=== PATIENT | male | born 1935 | race Caucasian/White ===

== ENCOUNTER 2016-07-30 17:44 | Emergency (ER) | payer MEDICARE, OTHER ==
[2016-07-30 18:01] LABS: Hematocrit 39.2 % (42.0-52.0); Hemoglobin 12.2 gm/dL (13.5-18.0); Mean Cell Volume 95.6 fl (78-100); Mean Corpuscular Hemoglobin 29.8 pg (27-31); Mean Corpuscular Hgb Conc 31.1 g/dl (32-36); Mean Platelet Volume 9.5 fl (6.0-9.5); Neutrophil # 7.1 K/mm3 (1.3-6.0); Neutrophil % 69.2 % (42-75.0); Platelet Count 440 K/mm3 (150-450); White Blood Count 10.3 K/mm3 (4.0-10.5)
[2016-07-30] MEDS ORDERED: HYDROCORTISONE SOD SUCCINATE 50 MG/ML VIAL IV ONE (18:03)
[2016-07-30] MEDS ORDERED: ALBUTEROL SULFATE/IPRATROPIUM 3 ML NEBU IH ONE ×2 (18:03→18:13)
[2016-07-30] MEDS ORDERED: HYDROCORTISONE SOD SUCCINATE 50 MG/ML VIAL ONE (18:14)
[2016-07-30 18:20] LABS: Troponin I 0.05 ng/ml (0.00-0.10)
[2016-07-30 18:22] LABS: Albumin * 3.1 gm/dl (3.4-5.0); Anion Gap 13.8 mmol/L (6.8-13.8); BUN/Creatinine Ratio 10.4 (9.0-21.6); Bilirubin, Total 0.6 mg/dL (0.0-1.1); Ca. Corrected For Albumin 9.6 mg/dL (8.4-10.2); Calcium * 9.2 mg/dL (7.9-10.9); Potassium 3.8 mmol/L (3.4-4.6); Total Protein 7.4 gm/dL (6.2-8.2)
--- NOTE | 2016-07-30 18:53 | ERNOTE ---
Dyspnea - General Presenting Symptoms: shortness of breath Time Seen by Provider: 07/30/16 17:55 Source: patient Exam Limitations: no limitations - Immun/Allergies/Home Medications Immunizations: IMMUNIZATION HX Immunizations Up to Date Yes History of Influenza Vaccine Yes Hx Pneumococcal Vaccination No Allergies/Adverse Reactions: Allergies No Known Allergies Allergy (Verified 07/30/16 17:51) Home Medications: HOME MEDICATIONS Polyethylene Glycol 3350 [Miralax] 17 gm PO DAILY 05/30/15 [Last Taken Unknown] Simvastatin [Zocor] 20 mg PO HS 05/30/15 [Last Taken Unknown] Cholecalciferol (Vitamin D3) [Vitamin D3] 2,000 unit PO DAILY #100 tab 06/15/15 [Last Taken Unknown] Albuterol Sulfate/Ipratropium [Duoneb 2.5-0.5MG/3ML Soln] 3 ml IH TID 07/30/16 [ Last Taken Unknown] Albuterol Sulfate/Ipratropium [Duoneb 2.5-0.5MG/3ML Soln] 3 ml IH TID 07/30/16 [ Last Taken Unknown] Doxycycline Monohydrate 100 mg PO BID #20 tablet 07/30/16 [Last Taken Unknown] Fluconazole [Diflucan] 100 mg PO DAILY 07/30/16 [Last Taken Unknown] Sertraline HCl [Zoloft] 50 mg PO DAILY 07/30/16 [Last Taken Unknown] predniSONE [Deltasone] 20 mg PO BID #10 tablet 07/30/16 [Last Taken Unknown] - History of Present Illness Narrative: Patient presents with progressively worsening shortness of breath. He states that over the past 2 weeks his legs have been starting to swell and he is having some difficulty laying flat as well. He states that when he lays flat and more short of breath. Describes short of breath as moderate in intensity. 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 Initiating event: Reports: none Frequency of episodes: Reports: occassional episodes Modifying Factors - (Improves): Reports: albuterol Modifying Factors (Worsens): Reports: activity Associated Symptoms-Dyspnea: Reports: denies symptoms Review of Systems - Review of Systems Constitutional: Present: See HPI, fatigue EYE: Present: no symptoms reported ENT: Present: no symptoms reported Respiratory: Present: shortness of breath, cough, orthopnea Cardiology: Present: palpitations, edema Gastrointestinal/Abdominal: Present: no symptoms reported Genitourinary: Present: no symptoms reported Musculoskeletal: Present: no symptoms reported Skin: Present: no symptoms reported Neurological: Present: no symptoms reported Endocrine: Present: no symptoms reported Hematologic/Lymphatic: Present: no symptoms reported Psych: Present: no symptoms reported - Patient's Past Medical History Patient History - Medical: Anxiety, Depression Patient History - Cardiac/Respiratory: COPD, Hyperlipidemia, Pneumonia, Other Patient History - Cancer: No Hx of Cancer Patient History - Surgical Procedures: Colonoscopy, T & A Patient History - Other: None - Family History Mother Family History - Medical: Father Family History - Medical: Family History - Cardiac/Respiratory: CVA/Stroke, Hypertension - Social History Living Situations: alone - at home, never . Abuse History: No History of abuse Psych History: No pertinent hx Smoking Status: Former smoker Have you smoked in the past 12 months: No Alcohol Use: other Drug Use: none - Immunizations Immunizations Up to Date: Yes Hx Pneumococcal Vaccination: No History of Influenza Vaccine: Yes Physical Exam - Physical Exam General Appearance: Present: wd/wn, alert, moderate distress Eye Exam: Normal inspection: bilateral, PERRL: bilateral Ears, Nose, Throat: Present: normal ENT inspection, H, normal pharynx Neck: Present: normal inspection, nontender Respiratory: Present: no accessory muscle use, chest nontender, crackles, wheezing Cardiovascular/Chest: Present: no murmur, normal peripheral pulses, tachycardia Gastrointestinal/Abdominal: Present: normal bowel sounds, nontender, nondistended, soft, no organomegaly Rectal Exam: Present: deferred Back Exam: Present: normal inspection, normal range of motion Extremity Exam: Present: normal inspection, non-tender, normal range of motion, pedal edema Neurological Exam: Present: alert, oriented, normal mood/affect Skin Exam: Present: normal color, warm/dry Lymphatic Exam: Present: no adenopathy ED Progress - Results and Orders Patient's Lab Results:: I have reviewed the patient's lab results. - Vital Signs Patient's Vital Signs:: I have reviewed the patient's vital signs. Vital Signs: Vital Signs 07/30/16 07/30/16 07/30/16 17:49 18:02 18:26 Temperature 37.3 C Pulse Rate 121 H 120 H 113 H Respiratory 24 H Rate Blood Pressure 165/79 O2 Sat by Pulse 97 95 Oximetry 07/30/16 18:31 Temperature Pulse Rate 112 H Respiratory 24 H Rate Blood Pressure 142/89 O2 Sat by Pulse 95 Oximetry - EKG EKG read: Interp. by me - X-Ray X-Ray #1 X-Ray: chest Interpretation: Reviewed by me - Progress/Reassessment Chief Complaint: Dyspnea Plan - Plan Plan: While the patient does have an elevated BNP, and he does have some evolving edema present in his lower extremities, his lungs appear to reveal more a COPD pattern than congestive heart failure. Of note however is the slight heart enlargement that has developed over the past year. Patient will be given a one- time dose of Lasix 80 mg, started on 5 days of prednisone and he will be started on doxycycline. He has been instructed to do his breathing treatments 4 times a day and he is to call Dr. Berger. In follow-up I suspect that the elevated BNP could also be from his evolving renal insufficiency. We'll leave further investigation of this up to Dr. Villa. I discussed admission with the patient and he stated that he could just as soon go home and feels well left to do that after the breathing treatment here. I stressed with him the need to call Dr. Villa in the morning to make sure that any further testing needs to be undertaken can be done as soon as possible. Departure Clinical Impression: COPD (chronic obstructive pulmonary disease) with acute bronchitis - Departure Disposition: Home self-care Condition: Good Instructions: Chronic Obstructive Pulmonary Disease, [id number] Referrals: Cheri Villa MD [Primary Care Provider] - Prescriptions: Doxycycline Monohydrate 100 mg PO BID #20 tablet predniSONE [Deltasone] 20 mg PO BID #10 tablet
[2016-07-30] MEDS ORDERED: FUROSEMIDE 10 MG/ML VIAL IV ONE (19:24)
[2016-07-30] MEDS ORDERED: FUROSEMIDE 10 MG/ML VIAL ONE (19:25)
[2016-07-30 19:50] VITALS: BP 145/101
== END 2016-07-30 19:46 | disposition home or self-care (01) ==
LOC: ER 17:44
DX: J44.9 Chronic obstructive pulmonary disease, unspecified (principal); F41.8 Other specified anxiety disorders

== ENCOUNTER 2016-08-06 07:59 | Emergency (ER) | payer MEDICARE, OTHER ==
[2016-08-06 08:43] LABS: Hematocrit 40.8 % (42.0-52.0); Hemoglobin 12.6 gm/dL (13.5-18.0); Mean Cell Volume 95.8 fl (78-100); Mean Corpuscular Hemoglobin 29.6 pg (27-31); Mean Corpuscular Hgb Conc 30.9 g/dl (32-36); Mean Platelet Volume 10.4 fl (6.0-9.5); Neutrophil # 8.7 K/mm3 (1.3-6.0); Neutrophil % 79.4 % (42-75.0); Platelet Count 328 K/mm3 (150-450); Red Blood Count 4.26 M/mm3 (4.7-6.0); Red Cell Distribution Width 14.6 % (11.5-14.0); White Blood Count 10.9 K/mm3 (4.0-10.5)
[2016-08-06 09:02] LABS: Albumin * 2.9 gm/dl (3.4-5.0); Anion Gap 9.3 mmol/L (6.8-13.8); Bilirubin, Total 0.8 mg/dL (0.0-1.1); Ca. Corrected For Albumin 9.3 mg/dL (8.4-10.2); Calcium * 8.7 mg/dL (7.9-10.9); Carbon Dioxide 32.3 mmol/L (24-32.6); Potassium 3.6 mmol/L (3.4-4.6); Total Protein 6.3 gm/dL (6.2-8.2)
[2016-08-06 09:11] VITALS: BP 127/80
--- NOTE | 2016-08-06 09:16 | ERNOTE ---
Time Seen by Provider: 08/06/16 08:20 Stated Complaint: ILL Immunizations: IMMUNIZATION HX Immunizations Up to Date Yes History of Influenza Vaccine Yes Hx Pneumococcal Vaccination No Allergies/Adverse Reactions: Allergies No Known Allergies Allergy (Verified 08/06/16 08:11) Home Medications: HOME MEDICATIONS Polyethylene Glycol 3350 [Miralax] 17 gm PO DAILY 05/30/15 [Last Taken Unknown] Simvastatin [Zocor] 20 mg PO HS 05/30/15 [Last Taken Unknown] Cholecalciferol (Vitamin D3) [Vitamin D3] 2,000 unit PO DAILY #100 tab 06/15/15 [Last Taken Unknown] Albuterol Sulfate/Ipratropium [Duoneb 2.5-0.5MG/3ML Soln] 3 ml IH TID 07/30/16 [ Last Taken Unknown] Albuterol Sulfate/Ipratropium [Duoneb 2.5-0.5MG/3ML Soln] 3 ml IH TID 07/30/16 [ Last Taken Unknown] Doxycycline Monohydrate 100 mg PO BID #20 tablet 07/30/16 [Last Taken Unknown] Fluconazole [Diflucan] 100 mg PO DAILY 07/30/16 [Last Taken Unknown] Sertraline HCl [Zoloft] 50 mg PO DAILY 07/30/16 [Last Taken Unknown] predniSONE [Deltasone] 20 mg PO BID #10 tablet 07/30/16 [Last Taken Unknown] - History of Present Ilness Narrative: This patient comes in today because he had a fall prior to presentation to the emergency room. He states that during the fall he did not hit his head however he broke his partial bridge and dentures. he any pain or discomfort to the facial area or the jaw or the oral cavity. Does have a history of congestive heart failure and was recently discharged from the hospital has no complaints of shortness of breath or cough any more than usual Review of Systems - Review of Systems Constitutional: Present: no symptoms reported, decreased activity level ENT: Present: no symptoms reported, other - patient states that he broke his lower dentures Respiratory: Present: no symptoms reported Cardiology: Present: no symptoms reported Gastrointestinal/Abdominal: Present: no symptoms reported Musculoskeletal: Present: no symptoms reported - Patient's Past Medical History Patient History - Medical: Anxiety, Depression Patient History - Cardiac/Respiratory: COPD, Hyperlipidemia, Pneumonia, Other Patient History - Cancer: No Hx of Cancer Patient History - Surgical Procedures: Colonoscopy, T & A Patient History - Other: None - Family History Mother Family History - Medical: Father Family History - Medical: Family History - Cardiac/Respiratory: CVA/Stroke, Hypertension - Social History Living Situations: alone - at home, never . Abuse History: No History of abuse Psych History: No pertinent hx Smoking Status: Former smoker Have you smoked in the past 12 months: No Alcohol Use: other Drug Use: none - Immunizations Immunizations Up to Date: Yes Hx Pneumococcal Vaccination: No History of Influenza Vaccine: Yes Physical Exam - Physical Exam General Appearance: Present: wd/wn, alert, no apparent distress Ears, Nose, Throat: Present: normal ENT inspection, other - patient is missing his lower dentures he has no evidence of trauma to the gums and teeth or tongue upon inspection and examination of the oral cavity. Neck: Present: normal inspection, nontender, supple Respiratory: Present: no respiratory distress, normal breath sounds, no accessory muscle use, chest nontender, lungs clear Cardiovascular/Chest: Present: regular rate, rhythm, no murmur, normal peripheral pulses Back Exam: Present: normal inspection Extremity Exam: Present: normal inspection ED Progress - Results and Orders Patient's Lab Results:: I have reviewed the patient's lab results. - Vital Signs Patient's Vital Signs:: I have reviewed the patient's vital signs. Vital Signs: Vital Signs 08/06/16 08/06/16 08:07 08:51 Temperature 36.6 C Pulse Rate 110 H 110 H Respiratory 18 24 H Rate Blood Pressure 131/76 133/76 O2 Sat by Pulse 96 97 Oximetry - EKG EKG read: Interp. by il - X-Ray X-Ray #1 X-Ray: chest - Progress/Reassessment Chief Complaint: Cough Plan - Plan Plan: This patient has a history of pulmonary issues, however all of those problems are stable. He did have a fall during which he broke his dentures however his oral cavity is free of any trauma he does have a small abrasion asked beneath the left side of his lower lip which is healed up there is no active bleeding going on no swelling deformity or any other trauma to his oral cavity. Although he did fracture his dentures. Additionally has an appointment with his primary care doctor at 1:15 today. Patient is stable to be discharged to follow-up with his primary care doctor today. For the treatment is indicated at this time. His BNP is elevated as it was last week. He has no significant shortness of breath. Departure - Departure Clinical Impression: Fall Qualifiers: Encounter type: initial encounter Qualified Code(s): W19.XXXA - Unspecified fall, initial encounter Disposition: Home self-care Condition: Good Instructions: Fall Prevention in the Home, [id number] Referrals: Cheri Villa MD [Primary Care Provider] -
== END 2016-08-06 09:24 | disposition home or self-care (01) ==
LOC: ER 07:59
DX: Z03.89 Encounter for observation for other suspected diseases and conditions ruled out (principal); W19.XXXA Unspecified fall, initial encounter; J44.9 Chronic obstructive pulmonary disease, unspecified; E78.5 Hyperlipidemia, unspecified; F41.8 Other specified anxiety disorders

== ENCOUNTER 2016-08-06 21:24 | Inpatient (IN) | payer MEDICARE, OTHER ==
--- NOTE | 2016-08-06 22:43 | ERNOTE ---
Medical Problem HPI - General Chief Complaint: General Assessment Time Seen by Provider: 08/06/16 22:32 Source: patient, other - neighbor - Immun/Allergies/Home Medications Immunizations: IMMUNIZATION HX Immunizations Up to Date Yes History of Influenza Vaccine Yes Hx Pneumococcal Vaccination No Allergies/Adverse Reactions: Allergies No Known Allergies Allergy (Verified 08/06/16 21:42) Home Medications: HOME MEDICATIONS Polyethylene Glycol 3350 [Miralax] 17 gm PO DAILY 05/30/15 [Last Taken Unknown] Simvastatin [Zocor] 20 mg PO HS 05/30/15 [Last Taken Unknown] Cholecalciferol (Vitamin D3) [Vitamin D3] 2,000 unit PO DAILY #100 tab 06/15/15 [Last Taken Unknown] Albuterol Sulfate/Ipratropium [Duoneb 2.5-0.5MG/3ML Soln] 3 ml IH TID 07/30/16 [ Last Taken Unknown] Doxycycline Monohydrate 100 mg PO BID #20 tablet 07/30/16 [Last Taken Unknown] Fluconazole [Diflucan] 100 mg PO DAILY 07/30/16 [Last Taken Unknown] Sertraline HCl [Zoloft] 50 mg PO DAILY 07/30/16 [Last Taken Unknown] predniSONE [Deltasone] 20 mg PO BID #10 tablet 07/30/16 [Last Taken Unknown] Albuterol Sulfate [Albuterol Sulfate 2.5 MG/3 ML] 2.5 mg IH TID PRN 08/07/16 [ Last Taken Unknown] Metoprolol Succinate 25 mg PO HS 08/07/16 [Last Taken Unknown] - History of Present History Narrative: Pt states he has not felt well for about a week. He has been seen in this ED twice in that time without significant findings. His friend suggests that he wants to be admitted to a skilled nursing Timing: constant Severity: moderate Review of Systems - Review of Systems Constitutional: Absent: recent illness, fever, chills EYE: Present: no symptoms reported ENT: Present: no symptoms reported Respiratory: Absent: shortness of breath, cough Cardiology: Absent: chest pain, palpitations Gastrointestinal/Abdominal: Present: constipation - cant remember when his last BM was., abdominal pain - mild diffuse, eating less, drinking less Genitourinary: Absent: frequency, pain Musculoskeletal: Absent: back pain, joint pain, joint swelling Skin: Absent: rash, change in color Neurological: Present: no symptoms reported Endocrine: Absent: excessive sweating, flushing Hematologic/Lymphatic: Present: no symptoms reported Psych: Present: no symptoms reported - Patient's Past Medical History Patient History - Medical: Anxiety, Depression Patient History - Cardiac/Respiratory: COPD, Hyperlipidemia, Pneumonia, Other Patient History - Cancer: No Hx of Cancer Patient History - Surgical Procedures: Colonoscopy, T & A Patient History - Other: None - Family History Mother Family History - Medical: Father Family History - Medical: Family History - Cardiac/Respiratory: CVA/Stroke, Hypertension - Social History Living Situations: alone - at home, never . Abuse History: No History of abuse Psych History: No pertinent hx Alcohol Use: other Drug Use: none - Immunizations Immunizations Up to Date: Yes Hx Pneumococcal Vaccination: No History of Influenza Vaccine: Yes Physical Exam - Physical Exam General Appearance: Present: wd/wn, alert, no apparent distress Eye Exam: Normal inspection: bilateral, PERRL: bilateral, EOMI: bilateral Ears, Nose, Throat: Present: normal ENT inspection, normal pharynx Neck: Present: normal inspection, nontender Respiratory: Present: no respiratory distress, normal breath sounds, lungs clear Cardiovascular/Chest: Present: regular rate, rhythm, no murmur, normal peripheral pulses Gastrointestinal/Abdominal: Present: normal bowel sounds, nontender, soft Back Exam: Present: normal inspection, normal range of motion Extremity Exam: Present: normal inspection, normal range of motion, no edema Neurological Exam: Present: alert, oriented, normal mood/affect Skin Exam: Present: normal color, warm/dry Lymphatic Exam: Present: no adenopathy ED Progress - Results and Orders Patient's Lab Results:: I have reviewed the patient's lab results. Results and Orders: Laboratory Tests 08/06/16 08/06/16 08/06/16 22:58 23:33 23:33 WBC 12.6 H Hgb 11.9 L Hct 37.8 L Plt Count 312 Neutrophils % 76.4 H Sodium 144 H Potassium 3.6 Chloride 107 H Carbon Dioxide 32.0 Anion Gap 8.6 BUN 32 H Creatinine 1.44 H Est GFR (Non-Af Amer) 50 L BUN/Creatinine Ratio 22.2 H Random Glucose 117 H Calcium 8.8 Total Bilirubin 0.5 AST 36 ALT 83 H Alkaline Phosphatase 96 Total Protein 6.1 L Albumin 2.5 L Urine Color Yellow Urine Appearance Clear Urine pH 8.0 H Ur Specific [place] 1.010 Urine Protein Negative Urine Glucose (UA) Negative Urine Ketones Negative Urine Blood Negative Urine Nitrate Negative Urine Bilirubin Negative Urine Urobilinogen Normal Ur Leukocyte Esterase Negative Urine RBC None seen Urine WBC None seen Ur Epithelial Cells None seen Amorphous Sediment Few - 1+ Urine Bacteria None seen Urine Culture Comments No culture indicated - Vital Signs Patient's Vital Signs:: I have reviewed the patient's vital signs. Vital Signs: Vital Signs 08/06/16 08/06/16 21:37 22:14 Temperature 36.6 C Pulse Rate 121 H 124 H Respiratory 16 22 H Rate Blood Pressure 139/79 143/99 O2 Sat by Pulse 98 96 Oximetry - EKG EKG: atrial fibrillation EKG read: Interp. by me EKG Comments: with RVR at 124 - X-Ray X-Ray #1 X-Ray: abdomen Interpretation: Interp. by me X-ray Comments: moderate stool RLQ and LUQ. no evidence of obstruction X-Ray #2 X-Ray: chest Interpretation: Interp. by me X-ray Comments: Unremarkable - CT/Ultrasound CT/Ultrasound Narrative: discussed elevated WBC with patient and his recent abdominal discomfort. suggested CT with contrast to R/O abdominal pathology. - Progress/Reassessment Chief Complaint: General Assessment Progress:: Improved Progress Note-Subjective: 08/07/16 03:27 spoke with Amparo CARREON about observation admission for telemetry she agrees with obs. admit. Cole catheter was placed and 1000mL was immediately returned. Cole was clamped to reduce bladder spasm and then drained later Departure - Departure Clinical Impression: Paroxysmal a-fib, Bladder outlet obstruction Constipation Qualifiers: Constipation type: slow transit constipation Qualified Code(s): K59.01 - Slow transit constipation Disposition: [facility] Condition: Fair
[2016-08-06 23:06] LABS: Urine Bilirubin Negative (NEGATIVE); Urine Blood Negative /ul (NEGATIVE); Urine Ketone Negative (NEGATIVE); Urine Nitrite Negative (NEGATIVE); Urine Protein Negative (NEGATIVE); Urine Urobilinogen Normal (NORMAL)
[2016-08-06 23:12] LABS: Urine Appearance Clear; Urine Color Yellow
[2016-08-06 23:13] LABS: Urine Amorphous Sediment Few - 1+ (NONE-FEW); Urine Bacteria None Seen; Urine RBC None Seen /hpf (0-5); Urine WBC None Seen /hpf (0-5)
[2016-08-06 23:34] LABS: Hematocrit 37.8 % (42.0-52.0); Hemoglobin 11.9 gm/dL (13.5-18.0); Mean Cell Volume 94.7 fl (78-100); Mean Corpuscular Hemoglobin 29.8 pg (27-31); Mean Corpuscular Hgb Conc 31.5 g/dl (32-36); Mean Platelet Volume 10.4 fl (6.0-9.5); Neutrophil # 9.6 K/mm3 (1.3-6.0); Neutrophil % 76.4 % (42-75.0); Platelet Count 312 K/mm3 (150-450); Red Blood Count 3.99 M/mm3 (4.7-6.0); Red Cell Distribution Width 14.6 % (11.5-14.0); White Blood Count 12.6 K/mm3 (4.0-10.5)
[2016-08-06 23:58] LABS: Albumin * 2.5 gm/dl (3.4-5.0); Anion Gap 8.6 mmol/L (6.8-13.8); BUN/Creatinine Ratio 22.2 (9.0-21.6); Bilirubin, Total 0.5 mg/dL (0.0-1.1); Ca. Corrected For Albumin 9.7 mg/dL (8.4-10.2); Calcium * 8.8 mg/dL (7.9-10.9); Potassium 3.6 mmol/L (3.4-4.6); Total Protein 6.1 gm/dL (6.2-8.2)
[2016-08-07] MEDS ORDERED: DIATRIZOATE MEGLU/DIATRIZO SOD 30 ML BTL ONE (00:32)
[2016-08-07] MEDS ORDERED: DIATRIZOATE MEGLU/DIATRIZO SOD 30 ML BTL PO ONE (00:45)
[2016-08-07] MEDS ORDERED: NORMAL SALINE 1,000 ML IV ONE (01:06)
[2016-08-07] MEDS ORDERED: ONDANSETRON HCL/PF 2 MG/ML VIAL ONE (01:40)
[2016-08-07] MEDS ORDERED: ONDANSETRON HCL/PF 2 MG/ML VIAL IV ONE (01:42)
--- NOTE | 2016-08-07 04:17 | HP ---
Chief Complaint - Chief Complaint Date of Service: 08/07/16 Time of Service: 04:13 Chief Complaint: " poor appetite, nausea, hurting all over". Source of HPI- Pt ; unreliable historian, ER Provider report. History of Present Illness: Mr. Vázquez is a 81-yr-old WM pt of Dr. Cheri Villa with a PMH of: COPD, Constipation, HLD, Pulmonary Fibrosis & Pneumonia. Pt does not appear to be a precise historian in relaying the events surrounding the period of unwellness. He states that he has not been himself anymore, and that he has felt nauseated and his appetite has been poor. He reports that he has felt bloated for the last 2-3 days and has not been able to urinate normally. He presented to the [facility] ED on 07/30/16 for SOB, leg swelling and the CXR obtained showed more COPD vs CHF. He was discharged from the ED on Doxycycline, Prednisone neb treatments. On 08/06/16, he presented to the ED again following a fall at home, but he denied hitting his head or having pain in any joints. His other medical problems were determined to be in a stable state by the ERP and so he was discharged again. He came back on the night of 08/06 stating to the ED physician that he just hasn't fell well, but could not elaborate further about his symptoms. During evaluation at the ED, the KUB obtained did not show any obstruction but there was moderate stool retention. The CT of the Abdomen showed bilateral hydronephrosis and hydroureter but no evidence of obstructing calculi. He was also found to be in A-fib with RVR of 120s-130s. Other labwork showed elevated WBC of 12,600 with a LT shift[place] [address], but he denied feeling of SOB, had no peripheral edema and the CXR did not show signs of pulmonary edema. The pt will be admitted under observation status for remote telemetry monitoring due to A-fib with RVR to ensure that it does not progress to a worse/dangerous arrythmia. - Patient's Past Medical History Patient History - Medical: Anxiety, Depression Patient History - Cardiac/Respiratory: COPD, Hyperlipidemia, Pneumonia, Other Patient History - Cancer: No Hx of Cancer Patient History - Surgical Procedures: Colonoscopy, T & A Patient History - Other: None - Family History Mother Family History - Medical: Family History - Cancer: Breast Father Family History - Medical: Family History - Cardiac/Respiratory: CVA/Stroke, Hypertension - Social History Living Situations: alone - at home, never . Abuse History: No History of abuse Psych History: No pertinent hx Alcohol Use: other Drug Use: none - Immunizations Immunizations Up to Date: Yes Hx Pneumococcal Vaccination: No History of Influenza Vaccine: Yes Review Of Systems (GEN) - Review of Systems Generalized/Overall Review: Present: Weakness, Malaise, Fatigue. Absent: Chills , Fever, Diaphoresis EENTM: Absent: Eye Pain, Blurred Vision, Nose Congestion Respiratory: Absent: Cough, Shortness of Breath, Orthopnea Cardiac: Absent: Chest Pain, Edema Abdominal: Present: Constipation. Absent: Nausea, Vomiting, Hematemesis, Abdominal Pain, Diarrhea Genitourinary: Present: Hesitancy, Retention. Absent: Burning, Itching Musculoskeletal: Present: Back Pain Neurological: Absent: Headache, Anxiety, Depressed Skin: Absent: Dryness, Lesions Endocrine: Absent: Intolerance to Cold, Intolerance to Heat, Increased Hunger, Increased Thirst Immunizations: IMMUNIZATION HX Immunizations Up to Date Yes History of Influenza Vaccine Yes Hx Pneumococcal Vaccination No Allergies/Adverse Reactions: Allergies Allergy/AdvReac Type Severity Reaction Status Date / Time No Known Allergies Allergy Verified 08/06/16 21:42 Home Medications: HOME MEDICATIONS Polyethylene Glycol 3350 [Miralax] 17 gm PO DAILY 05/30/15 [Last Taken Unknown] Simvastatin [Zocor] 20 mg PO HS 05/30/15 [Last Taken Unknown] Cholecalciferol (Vitamin D3) [Vitamin D3] 2,000 unit PO DAILY #100 tab 06/15/15 [Last Taken Unknown] Albuterol Sulfate/Ipratropium [Duoneb 2.5-0.5MG/3ML Soln] 3 ml IH TID 07/30/16 [ Last Taken Unknown] Doxycycline Monohydrate 100 mg PO BID #20 tablet 07/30/16 [Last Taken Unknown] Fluconazole [Diflucan] 100 mg PO DAILY 07/30/16 [Last Taken Unknown] Sertraline HCl [Zoloft] 50 mg PO DAILY 07/30/16 [Last Taken Unknown] predniSONE [Deltasone] 20 mg PO BID #10 tablet 07/30/16 [Last Taken Unknown] Albuterol Sulfate [Albuterol Sulfate 2.5 MG/3 ML] 2.5 mg IH TID PRN 08/07/16 [ Last Taken Unknown] Metoprolol Succinate 25 mg PO HS 08/07/16 [Last Taken Unknown] Exam - Exam Vital Signs: Vital Signs - Last Taken Temp 36.4 C L 08/07/16 00:37 Pulse 116 H 08/07/16 04:00 Resp 16 08/07/16 04:00 BP 137/88 08/07/16 04:00 Pulse Ox 93 08/07/16 04:00 Constitutional: Present: Alert, Oriented x3, Cooperative, No distress ENT Exam: Present: normal ENT inspection, hearing grossly normal Eye Exam: bilateral eye: normal inspection, PERRL Neck: Present: full range of motion, supple, normal inspection Back Exam: Present: normal inspection, no CVA tenderness Respiratory: Present: lungs clear, No rales Cardiovascular/Chest: Present: irregularly irregular Abdomen: Present: Normal bowel sounds, soft, nontender /Rectal: Present: Other - Jacques Catheter Extremity: Present: normal range of motion, non-tender, normal inspection Skin Exam: Present: warm/dry, no cyanosis Lymphatic: Present: no adenopathy Neurologic: Present: alert, normal mood/affect, oriented x 3 Appearance: Present: appropriate appearance, appropriate insight Eye contact: Present: cooperative, good eye contact, normal speech Thoughts: Present: normal thought pattern, no apparent hallucination Diagnostic Studies: Laboratory Results WBC 12.6 K/mm3 (4.0-10.5) H 08/06/16 23:33 RBC 3.99 M/mm3 (4.7-6.0) L 08/06/16 23:33 Hgb 11.9 gm/dL (13.5-18.0) L 08/06/16 23:33 Hct 37.8 % (42.0-52.0) L 08/06/16 23:33 MCV 94.7 fl (78-100) 08/06/16 23:33 MCH 29.8 pg (27-31) 08/06/16 23:33 MCHC 31.5 g/dl (32-36) L 08/06/16 23:33 RDW 14.6 % (11.5-14.0) H 08/06/16 23:33 Plt Count 312 K/mm3 (150-450) 08/06/16 23:33 MPV 10.4 fl (6.0-9.5) H 08/06/16 23:33 Immature Gran % (Auto) 0.40 % (0.001-0.429) 08/06/16 23: Immature Gran # (Auto) 0.05 K/mm3 (0.000-0.0310) H 08/06/16 23:33 Neutrophils % 76.4 % (42-75.0) H 08/06/16 23:33 Lymphocytes % 12.7 % (20-51) L 08/06/16 23:33 Monocytes % 8.8 % (0.0-9) 08/06/16 23: Eosinophils % 1.7 % (0.0-3.0) 08/06/16 23: Basophils % 0.0 % (0.0-1.0) 08/06/16 23: Nucleated RBC % 0.0 k/mm3 (0-1) 08/06/16 23:33 Neutrophils # 9.6 K/mm3 (1.3-6.0) H 08/06/16 23:33 Lymphocytes # 1.6 k/mm3 (1.5-3.5) 08/06/16 23:33 Monocytes # 1.1 k/mm3 (0.0-1.0) H 08/06/16 23:33 Eosinophils # 0.2 k/mm3 (0.0-0.7) 08/06/16 23:33 Absolute Basophils 0.0 k/mm3 (0.0-0.1) 08/06/16 23:33 Sodium 144 mmol/L (132-142) H 08/06/16 23:33 Plasma Sodium 144 mmol/L (130-142) H 08/06/16 23:33 Potassium 3.6 mmol/L (3.4-4.6) 08/06/16 23:33 Chloride 107 mmol/L (97-106) H 08/06/16 23:33 Carbon Dioxide 32.0 mmol/L (24-32.6) 08/06/16 23:33 Anion Gap 8.6 mmol/L (6.8-13.8) 08/06/16 23:33 BUN 32 mg/dL (6-23) H 08/06/16 23:33 Creatinine 1.44 mg/dL (0.4-1.4) H 08/06/16 23:33 Est GFR (Non-Af Amer) 50 mL/min (60-130) L 08/06/16 23:33 BUN/Creatinine Ratio 22.2 (9.0-21.6) H 08/06/16 23:33 Random Glucose 117 mg/dL (70-110) H 08/06/16 23:33 Calcium 8.8 mg/dL (7.9-10.9) 08/06/16 23:33 Calcium Adj for Albumin 9.7 mg/dL (8.4-10.2) 08/06/16 23:33 Total Bilirubin 0.5 mg/dL (0.0-1.1) 08/06/16 23:33 AST 36 U/L (0-48) 08/06/16 23:33 ALT 83 U/L (19-67) H 08/06/16 23:33 Alkaline Phosphatase 96 U/L (50-170) 08/06/16 23:33 Total Protein 6.1 gm/dL (6.2-8.2) L 08/06/16 23:33 Albumin 2.5 gm/dl (3.4-5.0) L 08/06/16 23:33 Urine Color Yellow 08/06/16 22:58 Urine Appearance Clear 08/06/16 22:58 Urine pH 8.0 pH (5.0-7.0) H 08/06/16 22:58 Ur Specific [place] 1.010 SP.GR. (1.005-1.030) 08/06/16 22:58 Urine Protein Negative mg/dL (NEGATIVE) 08/06/16 22:58 Urine Glucose (UA) Negative mg/dL (NEGATIVE) 08/06/16 22:58 Urine Ketones Negative mg/dL (NEGATIVE) 08/06/16 22:58 Urine Blood Negative /ul (NEGATIVE) 08/06/16 22:58 Urine Nitrate Negative (NEGATIVE) 08/06/16 22:58 Urine Bilirubin Negative mg/dl (NEGATIVE) 08/06/16 22:58 Urine Urobilinogen Normal EU/dl (NORMAL) 08/06/16 22:58 Ur Leukocyte Esterase Negative /ul (NEGATIVE) 08/06/16 22:58 Urine RBC None seen /hpf (0-5) 08/06/16 22:58 Urine WBC None seen /hpf (0-5) 08/06/16 22:58 Ur Epithelial Cells None seen /hpf (0-5) 08/06/16 22:58 Amorphous Sediment Few - 1+ (NONE-FEW) 08/06/16 22:58 Urine Bacteria None seen (NONE) 08/06/16 22:58 Urine Culture Comments No culture indicated 08/06/16 22:58 Assessment/Plan - Assessment/Plan (1) Atrial fibrillation with RVR Assessment: Pt noted to have A-fib with RVR in 120s on the EKG during presentation and later trended down to the 110s without any pharmacological intervention. He denied the associated symptoms of: SOB, Dizziness,Chest pain and lightheadedness. He may need a TTE to check for valvular disease and to look for thrombus formation. Will check TSH as this is the first episode of A-fib. For pt's with new onset Afib, rate control precedes any attempt to restore sinus rhythm and since he is asymptomatic, a lenient rate control of < [address] him on continuos telemetry monitoring and start him on Metoprolol Succinate 50 mg daily. He may also need anticoagulation as he has an intermediate risk of thromboembolic event according to the CHADS2 score. Problem: Acute (2) Urinary retention Assessment: The Abdominal x-ray showed moderate stool retention. The CT scan of the Abdomen showed bilateral hydronephrosis and hydroureter but no evidence of obstructing calculi. Pt reported having trouble with voiding. He had a jacques catheter inserted at the ED and had urine output of 1000 ml. I suspect the urinary retention was caused by constipation. Will treat the constipation with stimulant and osmotic laxative. Will discontinue jacques catheter and bladder scan for PVR. Problem: Acute (3) ERON (acute kidney injury) Assessment: Mildly elevated BUN/CR 32/1.44 and probably worsened by retention. Has a jacques cath. and will continue to hydrate with IVF. Check BMP in am. Problem: Acute (4) Constipation Assessment: Moderate stool retention noted on Abd. X-Ray- Given Dulcolax supp and Miralax. Monitor results. Problem: Acute Qualifiers: Constipation type: slow transit constipation Qualified Code(s): K59.01 - Slow transit constipation (5) Elevated brain natriuretic peptide (BNP) level Assessment: Even though he has elevated BNP, he lacks the signs of Congestive Heart Failure : he denies SOB or does not appear to be dyspneic, no peripheral edema and no pulmonary congestion/edema on CXR. Laboratory Tests 07/30/16 08/06/16 08/07/16 17:55 08:36 03:50 B-Natriuretic Peptide 69921 H 54265 H 55512 H Problem: Acute (6) COPD (chronic obstructive pulmonary disease) Assessment: Stable- Continue Neb treatments. Problem: Chronic (7) Hyperlipidemia Assessment: Stable- On Zocor. Problem: Chronic (8) Pulmonary fibrosis, unspecified Problem: Chronic
[2016-08-07 04:21] LABS: Troponin I 0.042 ng/ml (0.00-0.10)
[2016-08-07] MEDS ORDERED: BISACODYL 10 MG SUPP.RECT RC ONE (04:58)
[2016-08-07] MEDS ORDERED: NORMAL SALINE 1,000 ML IV PRN (05:15)
[2016-08-07] MEDS: POLYETHYLENE GLYCOL 3350 119 GM BTL PO SCH ×2 (05:27→08:50)
[2016-08-07 06:20] LABS: Hematocrit 38.1 % (42.0-52.0); Hemoglobin 11.7 gm/dL (13.5-18.0); Mean Cell Volume 96.2 fl (78-100); Mean Corpuscular Hemoglobin 29.5 pg (27-31); Mean Corpuscular Hgb Conc 30.7 g/dl (32-36); Mean Platelet Volume 10.3 fl (6.0-9.5); Neutrophil # 8.9 K/mm3 (1.3-6.0); Neutrophil % 77.3 % (42-75.0); Platelet Count 311 K/mm3 (150-450); Red Blood Count 3.96 M/mm3 (4.7-6.0); Red Cell Distribution Width 14.6 % (11.5-14.0); White Blood Count 11.5 K/mm3 (4.0-10.5)
[2016-08-07] MEDS ORDERED: ALBUTEROL SULFATE 2.5 MG/3 ML VIAL.NEB IH PRN (06:42)
[2016-08-07] MEDS ORDERED: METOPROLOL SUCCINATE 50 MG TABLET.SA PO SCH (06:45)
[2016-08-07 06:52] LABS: Anion Gap 9.1 mmol/L (6.8-13.8); BUN/Creatinine Ratio 19.1 (9.0-21.6); Calcium * 8.6 mg/dL (7.9-10.9); Carbon Dioxide 29.9 mmol/L (24-32.6); Estimated Creat Clear 37.1; TSH * 1.473 uIU/mL (0.358-3.74)
[2016-08-07] MEDS: CHOLECALCIFEROL 1,000 UNIT CAPSULE PO SCH (08:54)
[2016-08-07] MEDS: SERTRALINE HCL 50 MG TABLET PO SCH (08:54)
[2016-08-07] MEDS ORDERED: FLUCONAZOLE 100 MG TABLET PO SCH (09:00)
[2016-08-07] MEDS ORDERED: DOXYCYCLINE HYCLATE 100 MG TABLET PO SCH (09:00)
[2016-08-07] MEDS: ALBUTEROL SULFATE/IPRATROPIUM 3 ML NEBU IH SCH ×3 (09:05→18:22)
[2016-08-07] MEDS ORDERED: DEXTROSE 5%-NORMAL SALINE 1,000 ML IV PRN (09:42)
[2016-08-07] MEDS ORDERED: TAMSULOSIN HCL 0.4 MG CAP.SR.24H PO ONE (10:15)
[2016-08-07] MEDS ORDERED: LIDOCAINE HCL 10 APPL CARTRIDGE TP ONE (10:19)
[2016-08-07] MEDS ORDERED: LIDOCAINE HCL 10 APPL CARTRIDGE ONE (10:22)
--- NOTE | 2016-08-07 10:33 | CONS ---
HPI - General Narrative: 81-year-old male with history of COPD, pulmonary fibrosis and possible CHF admitted for what appears to be a CHF exacerbation. Was discovered on imaging to have significant hydroureteronephrosis. Cole catheter was placed with 1 L residual. Creatinine history: 2016 1.0 2016 1.2 07/27 1.8 07/27 1.5 07/27 1.4 07/27 CT urogram: Bilateral significant hydroureteronephrosis with massive bladder distention, large prostate. Definitely outlet obstruction. Past medical history: Includes COPD, pulmonary fibrosis, possible CHF Past surgical history: No prior prostate surgery Family history: Noncontributory Social history: Lives alone Review of systems: General: No fevers, some nausea and fatigue Lungs: Get short of breath fairly easily Heart: No active chest pain GI: Trouble with constipation from time to time : Does have obstructive symptomatology a baseline. Does not care for the catheter. He is not sure if he is ever had a PSA. 14 point review of systems otherwise negative, important positives noted - History of Present Illness Allergies/Adverse Reactions: Allergies No Known Allergies Allergy (Verified 08/06/16 21:42) Home Medications: Home Medications Medication Instructions Recorded Last Taken Polyethylene Glycol 3350 [Miralax] 17 gm PO DAILY 05/30/15 Unknown Simvastatin [Zocor] 20 mg PO HS 05/30/15 Unknown Albuterol Sulfate/Ipratropium 3 ml IH TID 07/30/16 Unknown [Duoneb 2.5-0.5MG/3ML Soln] Fluconazole [Diflucan] 100 mg PO DAILY 07/30/16 Unknown Sertraline HCl [Zoloft] 50 mg PO DAILY 07/30/16 Unknown Albuterol Sulfate [Albuterol 2.5 mg IH TID PRN 08/07/16 Unknown Sulfate 2.5 MG/3 ML] Metoprolol Succinate 25 mg PO HS 08/07/16 Unknown - Patient's Past Medical History Patient History - Medical: Anxiety, Depression Patient History - Cardiac/Respiratory: COPD, Hyperlipidemia, Pneumonia, Other Patient History - Cancer: No Hx of Cancer Patient History - Surgical Procedures: Colonoscopy, T & A Patient History - Other: None - Family History Mother Family History - Medical: Family History - Cancer: Breast Father Family History - Medical: Family History - Cardiac/Respiratory: CVA/Stroke, Hypertension - Social History Living Situations: alone - at home, never . Abuse History: No History of abuse Psych History: No pertinent hx Smoking Status: Former smoker Have you smoked in the past 12 months: No Smoking Stop Date: 02/10/01 Patient requests Smoking Cessation Consult: No Initiate information on Smoking Cessation: No Alcohol Use: other Drug Use: none - Immunizations Immunizations Up to Date: Yes Hx Pneumococcal Vaccination: No History of Influenza Vaccine: Yes Medications - Medications Current Medications: Current Medications Albuterol/Ipratropium (Duoneb 2.5-0.5mg/3ml Soln) 3 ml IH TIDRT JI Stop: 09/06/16 09:01 Last Admin: 08/07/16 09:05 Dose: 3 ml Cholecalciferol (Vitamin D) 2,000 unit PO DAILY JI Stop: 09/06/16 09:01 Last Admin: 08/07/16 08:54 Dose: 2,000 unit Polyethylene Glycol (Miralax) 17 gm PO DAILY JI Stop: 09/06/16 05:16 Last Admin: 08/07/16 08:50 Dose: Not Given Sertraline HCl (Zoloft) 50 mg PO DAILY JI Stop: 09/06/16 09:01 Last Admin: 08/07/16 08:54 Dose: 50 mg Physical Examination - Exam Narrative: General: Nontoxic, looks a bit uncomfortable, impaired performance status, not the best surgical candidate Psych: Alert and oriented HEENT: EOM grossly intact Lungs: Respirations slightly labored at rest otherwise clear Abdomen: Relatively thin, benign Neuro: sensation intact Extremities: Moves all 4 without difficulty Heart: Pulse was a bit tachy Skin: Some bruising Back: No CVA tenderness Genital: Cole catheter in place. Urine is a bit red which is not surprising given decompression of bladder likely lead to some mucosal cracking. No clots, seems to be draining well Vital Signs: Vital Signs - Last Taken Temp 97.7 F 08/07/16 10:10 Pulse 103 H 08/07/16 10:10 Resp 16 08/07/16 10:10 BP 116/81 08/07/16 10:10 Pulse Ox 94 08/07/16 10:10 O2 Oxygen Delivery Method Room Air - Results and Findings: Narrative: Urinary retention: Patient definitely has outlet obstruction with bilateral hydroureteronephrosis and massive bladder distention on CT which likely explains the renal failure. Short-term needs Cole catheter which may improve nausea already starting to improve creatinine. Issue with massive bladder distention/hydronephrosis is mucosa will crack and bleed the other thing to look out for his postobstructive diuresis. If patient is putting out more than 3 L of urine output per day we'll need to replace and monitor electrolytes closely. In the short-term I recommendation is to start both Flomax and Proscar. Patient should go home on both of those medications with refills. I attempted to order both medications inpatient but I cannot understand you're computer system nor save the order. He should go home with Cole catheter to straight drainage. Patient should follow with me next Friday in my office here in [place]. I will see him that day and likely remove catheter at that time. I will also plan on possible flexible cystoscopy without anesthesia to be performed in the operating room later that afternoon to assess bladder and prostate as he is likely going to require TURP going forward based on degree of bladder distention , prostate size and hydroureteronephrosis. I did obtain a PSA as I had nothing on file. PSA is elevated but he is 81 years old with a huge prostate. I will discuss possible prostate biopsy with him although I do not think proceeding with biopsy would alter the short-term course. The bigger issue will be whether or not he is able to void on his own. Only options in that situation would be catheter indwelling versus CIC versus TURP the hope being he can come off of catheter. Medical therapy may buy us some time. Please call my office in [place] notify them of this patient and fax this note there and they will arrange follow-up/schedule. For now Cole catheter should be to straight drainage. Nursing should flush catheter if not draining as needed with Ely syringe and normal saline. If continues to have trouble with recurrent obstruction/hematuria may need to place larger catheter three-way and running irrigation but would touch base with urology on-call before doing so. Lab/Microbiology results last 24 hrs: Abnormal/Pending Laboratory Last 24 HRS 08/07/16 08/07/16 06:10 06:10 WBC 11.5 H RBC 3.96 L Hgb 11.7 L Hct 38.1 L MCHC 30.7 L RDW 14.6 H MPV 10.3 H Immature Gran % (Auto) 0.50 H Immature Gran # (Auto) 0.06 H Neutrophils % 77.3 H Lymphocytes % 10.9 L Neutrophils # 8.9 H Lymphocytes # 1.3 L Chloride 107 H BUN 27 H Creatinine 1.41 H Est GFR (Non-Af Amer) 51 L Random Glucose 122 H
[2016-08-07] MEDS: FINASTERIDE 5 MG TABLET PO SCH (11:55)
[2016-08-07] MEDS ORDERED: FUROSEMIDE 10 MG/ML VIAL IV ONE (13:15)
[2016-08-07] MEDS ORDERED: SPIRONOLACTONE 25 MG TABLET PO ONE (13:30)
[2016-08-07] MEDS: DIGOXIN 0.25 MG/ML AMPUL IV SCH ×2 (17:22→23:09)
[2016-08-07] MEDS ORDERED: ALBUTEROL SULFATE/IPRATROPIUM 3 ML NEBU IH PRN (18:13)
[2016-08-07] MEDS: TAMSULOSIN HCL 0.4 MG CAP.SR.24H PO SCH (18:38)
[2016-08-07] MEDS ORDERED: Lytes/Yerba Santa 60 APPL BTL MM ONE (20:01)
[2016-08-07] MEDS: Lytes/Yerba Santa 240 APPL BTL MM SCH ×2 (20:02→23:08)
[2016-08-07] MEDS: ENOXAPARIN SODIUM 40 MG/0.4 ML SYRG SC SCH (20:03)
[2016-08-07] MEDS: SIMVASTATIN 20 MG TABLET PO SCH (20:03)
[2016-08-07] MEDS ORDERED: METOPROLOL SUCCINATE 50 MG TABLET.SA PO ONE (20:04)
[2016-08-07] MEDS: METOPROLOL SUCCINATE 25 MG TABLET.SA PO SCH (20:05)
[2016-08-08] MEDS: Lytes/Yerba Santa 240 APPL BTL MM SCH ×6 (02:41→23:17)
[2016-08-08] MEDS: DIGOXIN 0.25 MG/ML AMPUL IV SCH (05:05)
[2016-08-08 05:30] LABS: Hematocrit 36.7 % (42.0-52.0); Hemoglobin 11.2 gm/dL (13.5-18.0); Mean Cell Volume 96.8 fl (78-100); Mean Corpuscular Hemoglobin 29.6 pg (27-31); Mean Corpuscular Hgb Conc 30.5 g/dl (32-36); Mean Platelet Volume 10.7 fl (6.0-9.5); Neutrophil # 7.6 K/mm3 (1.3-6.0); Neutrophil % 72.1 % (42-75.0); Platelet Count 292 K/mm3 (150-450); Red Blood Count 3.79 M/mm3 (4.7-6.0); Red Cell Distribution Width 14.6 % (11.5-14.0); White Blood Count 10.6 K/mm3 (4.0-10.5)
[2016-08-08 06:02] LABS: Albumin * 2.7 gm/dl (3.4-5.0); Bilirubin, Total 0.8 mg/dL (0.0-1.1); Ca. Corrected For Albumin 8.9 mg/dL (8.4-10.2); Calcium * 8.2 mg/dL (7.9-10.9); Carbon Dioxide 31.2 mmol/L (24-32.6); Potassium 4.2 mmol/L (3.4-4.6); Total Protein 6.1 gm/dL (6.2-8.2)
[2016-08-08] MEDS ORDERED: FINASTERIDE 5 MG TABLET PO SCH (09:00)
[2016-08-08] MEDS: POLYETHYLENE GLYCOL 3350 119 GM BTL PO SCH (09:35)
[2016-08-08] MEDS: FINASTERIDE 5 MG TABLET PO SCH (09:36)
[2016-08-08] MEDS: METOPROLOL SUCCINATE 25 MG TABLET.SA PO SCH (09:36)
[2016-08-08] MEDS: SERTRALINE HCL 50 MG TABLET PO SCH (09:37)
[2016-08-08] MEDS: CHOLECALCIFEROL 1,000 UNIT CAPSULE PO SCH (09:37)
[2016-08-08] MEDS ORDERED: FUROSEMIDE 10 MG/ML VIAL IV ONE (11:00)
[2016-08-08] MEDS ORDERED: SPIRONOLACTONE 25 MG TABLET PO ONE (11:00)
--- NOTE | 2016-08-08 13:24 | PN ---
Subjective - Date and Time Seen Date: 08/08/16 Time: 12:24 Subjective Narrative: patient feels less SOB, diuresed well. denies CP. Unable to grasp his overall medical condition when explained to him regarding his EF, AAA and BPH. Objective - Review of Systems Generalized/Overall Review: Reports: Weakness Respiratory: Reports: Shortness of Breath - Improving Cardiac: Denies: Chest Pain Neurological: Reports: Depressed - Vitals Vitals: Vital Signs Temp 36.7 C 08/08/16 10:24 Pulse 89 08/08/16 10:24 Resp 18 08/08/16 10:24 BP 97/61 08/08/16 10:24 Pulse Ox 96 08/08/16 10:24 - Abnormal Lab Findings Abnormal Lab Findings: Laboratory Tests 08/08/16 05:20 WBC 10.6 H Hgb 11.2 L Hct 36.7 L Plt Count 292 08/08/16 05:20 Plasma Sodium 141 Potassium 4.2 Chloride 104 Carbon Dioxide 31.2 BUN 29 H Creatinine 1.53 H Est GFR (Non-Af Amer) 46 L Total Bilirubin 0.8 AST 77 H ALT 114 H Alkaline Phosphatase 132 Total Protein 6.1 L Albumin 2.7 L Vitamin B12 933 08/07/16 08/07/16 03:50 06:10 B-Natriuretic Peptide 17578 H Prostate Specific Ag 10.55 H TSH 1.473 - Exam Constitutional: Present: Elderly, Thin and frail - cooperative, has difficulty in understanding what's told to him. ENT Exam: Present: hard of hearing, moist mucous membranes - eduntulous. Respiratory: Present: decreased breath sounds - at bases with few crackles Cardiovascular/Chest: Present: regular rate, rhythm, systolic murmur. Absent: tachycardia Abdomen: Present: Normal bowel sounds, soft, nontender Extremity: Present: non-tender, lower extremity edema - 1+ Skin Exam: Present: warm/dry, pallor Cauti Physician Documentation - Urinary Catheter Management Urethral (Cole) Urethral Indwelling: Yes Reason for Continuing Indwelling Catheter: Acute urinary retention Date of Insertion: 08/07/16 Time of Insertion: 03:30 Assessment/Plan Plan Narrative: 1. HFrEF: EF 25-30% with global hypokinesis. Patient currently being diuresed very gently. Has abnormal LFTs today most likely secondary to passive congestion. Monitor electrolytes, daily I's/ O's and weights. 2. A. fib with RVR: New onset. TSH WNL at 1.473. Patient converted to NSR today at approximately 10-11 :00 AM. Poor candidate for anticoagulation due to risk of falls and mild memory problems. 3. S/P AAA: On CT abd/ pelvis [07/2016]- 4.6 cm x 4.3 cm. 4. BPH with indwelling Cole's catheter: with hydronephrosis and increased PSA 10.55. Dr. Garcia saw patient who recommended leaving Cole's catheter in. Patient currently is on Proscar 5 mg in a.m. and Flomax 0.4 mg in p.m. 5. COPD/IPF: Nebulizer treatments with DuoNeb, currently stable. 6. Social problems: Patient lives alone and does not have a very good support system. He has a [id number]['[id number] ] who has neuropathy and can only drive about 10- 15 miles during daylight. Sister is [last year]. Patient unable to comprehend all his medical problems occurring during this admission.
--- NOTE | 2016-08-08 15:25 | ECHO ---
This report is available in the EMR
[2016-08-08] MEDS: TAMSULOSIN HCL 0.4 MG CAP.SR.24H PO SCH (17:19)
[2016-08-08] MEDS: SIMVASTATIN 20 MG TABLET PO SCH (20:09)
[2016-08-08] MEDS: ENOXAPARIN SODIUM 40 MG/0.4 ML SYRG SC SCH (20:09)
[2016-08-08] MEDS: CALCIUM CARBONATE 500 MG TAB.CHEW PO PRN (23:17)
[2016-08-09] MEDS: Lytes/Yerba Santa 240 APPL BTL MM SCH ×5 (04:23→20:16)
[2016-08-09] MEDS ORDERED: LISINOPRIL 5 MG TABLET PO SCH (09:00)
[2016-08-09 09:01] LABS: Albumin * 2.5 gm/dl (3.4-5.0); Anion Gap 6.8 mmol/L (6.8-13.8); BUN/Creatinine Ratio 19.1 (9.0-21.6); Bilirubin, Total 0.8 mg/dL (0.0-1.1); Ca. Corrected For Albumin 9.1 mg/dL (8.4-10.2); Calcium * 8.2 mg/dL (7.9-10.9); Carbon Dioxide 32.9 mmol/L (24-32.6); Potassium 3.7 mmol/L (3.4-4.6); Total Protein 5.9 gm/dL (6.2-8.2)
[2016-08-09] MEDS: POLYETHYLENE GLYCOL 3350 119 GM BTL PO SCH (09:10)
[2016-08-09] MEDS: FINASTERIDE 5 MG TABLET PO SCH (09:10)
[2016-08-09] MEDS: CHOLECALCIFEROL 1,000 UNIT CAPSULE PO SCH (09:10)
[2016-08-09] MEDS: METOPROLOL SUCCINATE 25 MG TABLET.SA PO SCH (09:11)
[2016-08-09] MEDS: SERTRALINE HCL 50 MG TABLET PO SCH (09:11)
[2016-08-09] MEDS: PSYLLIUM SEED 1 PACKET PACKET PO SCH ×2 (10:55→20:15)
[2016-08-09] MEDS: SPIRONOLACTONE 25 MG TABLET PO SCH (10:55)
[2016-08-09] MEDS: TAMSULOSIN HCL 0.4 MG CAP.SR.24H PO SCH (17:08)
--- NOTE | 2016-08-09 18:45 | PN ---
Subjective - Date and Time Seen Date: 08/09/16 Time: 18:39 Subjective Narrative: Overall feels better, occasional cough, no sputum production, denies any chest pain. Has difficulty in understanding his medical condition. When asked - states he was told "had a hole in my heart". Objective - Review of Systems Generalized/Overall Review: Denies: Weakness Respiratory: Reports: Cough, Shortness of Breath - improving Cardiac: Denies: Chest Pain, Edema - Vitals Vitals: Vital Signs Temp 36.5 C 08/09/16 18:00 Pulse 83 08/09/16 18:00 Resp 18 08/09/16 18:00 BP 100/49 08/09/16 18:00 Pulse Ox 95 08/09/16 18:00 - Abnormal Lab Findings Abnormal Lab Findings: Laboratory Tests 08/09/16 08:41 Plasma Sodium 139 Potassium 3.7 Chloride 103 Carbon Dioxide 32.9 H BUN 30 H Creatinine 1.57 H Est GFR (Non-Af Amer) 45 L Random Glucose 115 H Calcium Adj for Albumin 9.1 Total Bilirubin 0.8 AST 54 H ALT 94 H Alkaline Phosphatase 129 Total Protein 5.9 L Albumin 2.5 L 08/06/16 08/09/16 21:37 05:21 Weight 63.004 kg 60.4 kg - EKG/Xray Findings EKG read: Reviewed by me - Exam Constitutional: Present: Elderly, Thin and frail ENT Exam: Present: hard of hearing, moist mucous membranes Respiratory: Present: normal breath sounds. Absent: no accessory muscle use Cardiovascular/Chest: Present: regular rate, rhythm, systolic murmur. Absent: tachycardia Abdomen: Present: Normal bowel sounds, soft, nontender, nondistended Extremity: Present: normal inspection. Absent: lower extremity edema Skin Exam: Present: warm/dry, pallor Appearance: Present: impaired insight - ?? memory impairment Cauti Physician Documentation - Urinary Catheter Management Urethral (Cole) Urethral Indwelling: Yes Date of Insertion: 08/07/16 Time of Insertion: 03:30 Assessment/Plan Plan Narrative: 1. HFrEF: EF 25-30% with global hypokinesis. Patient currently being diuresed gently. Has abnormal LFTs most likely secondary to passive congestion which are improving Monitor electrolytes, daily I's/ O's and weights. On lisinopril 2.5 mg PO daily in AM. held furosemide today due to increased BUN/CR. Spironolactone 25 mg PO given today. 2. A. fib with RVR: New onset. TSH WNL at 1.473. Patient converted to NSR on 08/08/16 at approximately 10-11 :00 AM. Poor candidate for anticoagulation due to risk of falls and mild memory problems. Increase metoprolol ER 25 mg to 50 mg PO HS. 3. S/P AAA: On CT abd/ pelvis [07/2016]- 4.6 cm x 4.3 cm. 4. BPH with indwelling Cole's catheter: with hydronephrosis and increased PSA 10.55. Dr. Garcia saw patient who recommended leaving Cole's catheter in. Patient currently is on Proscar 5 mg in a.m. and Flomax 0.4 mg in p.m. 5. COPD/IPF: Nebulizer treatments with DuoNeb, currently stable. 6. Social problems: Patient lives alone and does not have a very good support system. He has a [id number]['[id number] ] who has neuropathy and can only drive about 10- 15 miles during daylight. Sister is [last year]. Patient unable to comprehend all his medical problems occurring during this admission. Trying to contact 2 of his nieces. Discussed in detail - changed from full code to DNR
[2016-08-09] MEDS: CALCIUM CARBONATE 500 MG TAB.CHEW PO PRN ×2 (20:14→21:36)
[2016-08-09] MEDS: ROSUVASTATIN CALCIUM 10 MG TABLET PO SCH (20:15)
[2016-08-09] MEDS: ENOXAPARIN SODIUM 40 MG/0.4 ML SYRG SC SCH (20:15)
[2016-08-09] MEDS: METOPROLOL SUCCINATE 50 MG TABLET.SA PO SCH (20:19)
[2016-08-10] MEDS: Lytes/Yerba Santa 240 APPL BTL MM SCH ×7 (00:34→23:20)
[2016-08-10] MEDS: CALCIUM CARBONATE 500 MG TAB.CHEW PO PRN (01:21)
[2016-08-10 06:32] LABS: Albumin * 2.4 gm/dl (3.4-5.0); BUN/Creatinine Ratio 20.3 (9.0-21.6); Bilirubin, Total 0.6 mg/dL (0.0-1.1); Ca. Corrected For Albumin 9.3 mg/dL (8.4-10.2); Calcium * 8.3 mg/dL (7.9-10.9); Carbon Dioxide 29.5 mmol/L (24-32.6); Potassium 4.5 mmol/L (3.4-4.6); Total Protein 5.7 gm/dL (6.2-8.2)
[2016-08-10] MEDS: FINASTERIDE 5 MG TABLET PO SCH (09:20)
[2016-08-10] MEDS: CHOLECALCIFEROL 1,000 UNIT CAPSULE PO SCH (09:20)
[2016-08-10] MEDS: SPIRONOLACTONE 25 MG TABLET PO SCH (09:20)
[2016-08-10] MEDS: SERTRALINE HCL 50 MG TABLET PO SCH (09:20)
[2016-08-10] MEDS: PSYLLIUM SEED 1 PACKET PACKET PO SCH ×2 (09:20→20:02)
[2016-08-10] MEDS: METOPROLOL SUCCINATE 50 MG TABLET.SA PO SCH (09:20)
[2016-08-10] MEDS: LISINOPRIL 2.5 MG TABLET PO SCH (09:21)
--- NOTE | 2016-08-10 12:24 | PN ---
Subjective - Date and Time Seen Date: 08/10/16 Time: 12:17 Subjective Narrative: Reports weakness and fatigue. Denies shortness of breath, chest pain, fever, or chills. Objective - Vitals Vitals: Last Vital Signs Temp 36.3 C L 08/10/16 10:22 Pulse 80 08/10/16 10:22 Resp 18 08/10/16 10:22 BP 93/57 08/10/16 10:22 Pulse Ox 94 08/10/16 10:22 - Abnormal Lab Findings Abnormal Lab Findings: Abnormal Lab Results 08/10/16 Range/Units 06:10 BUN 31 H (6-23) mg/dL Creatinine 1.53 H (0.4-1.4) mg/dL Est GFR (Non-Af Amer) 46 L (60-130) mL/min ALT 74 H (19-67) U/L Total Protein 5.7 L (6.2-8.2) gm/dL Albumin 2.4 L (3.4-5.0) gm/dl - Exam Constitutional: Present: Alert, Oriented x3, Cooperative ENT Exam: Present: hearing grossly normal Respiratory: Present: lungs clear, normal breath sounds Cardiovascular/Chest: Present: regular rate, rhythm, systolic murmur Abdomen: Present: Normal bowel sounds, soft, nontender, nondistended Extremity: Present: normal inspection. Absent: lower extremity edema Skin Exam: Present: normal color, warm/dry, no cyanosis Cauti Physician Documentation - Urinary Catheter Management Urethral (Cole) Urethral Indwelling: Yes Date of Insertion: 08/07/16 Time of Insertion: 03:30 Assessment/Plan Plan Narrative: 1. HFrEF: EF 25-30% with global hypokinesis. Patient currently being diuresed gently. Has abnormal LFTs most likely secondary to passive congestion which are improving. Monitor electrolytes, daily I's/ O's and weights. On lisinopril 2.5 mg PO daily in AM. Spironolactone 25 mg PO daily, potassium being monitored, normal today but did rise some, continue to monitor 2. A. fib with RVR: New onset. TSH WNL at 1.473. Patient converted to NSR on 08/08/16 at approximately 10-11 :00 AM. Poor candidate for anticoagulation due to risk of falls and mild memory problems. Remains rate controlled and blood pressure controlled. 3. S/P AAA: On CT abd/ pelvis [07/2016]- 4.6 cm x 4.3 cm. 4. BPH with indwelling Cole's catheter: with hydronephrosis and increased PSA 10.55. Dr. Garcia saw patient who recommended leaving Cole's catheter in. Patient currently is on Proscar 5 mg in a.m. and Flomax 0.4 mg in p.m. 5. COPD/IPF: Nebulizer treatments with DuoNeb, currently stable. 6. Social problems: Patient lives alone and does not have a very good support system. He has a [id number]-[id number]['s ] who has neuropathy and can only drive about 10- 15 miles during daylight. Sister is [last year]. Patient unable to comprehend all his medical problems occurring during this admission. Trying to contact 2 of his nieces. Patient DNR
[2016-08-10] MEDS: TAMSULOSIN HCL 0.4 MG CAP.SR.24H PO SCH (17:36)
[2016-08-10] MEDS: ROSUVASTATIN CALCIUM 10 MG TABLET PO SCH (20:02)
[2016-08-10] MEDS: ENOXAPARIN SODIUM 40 MG/0.4 ML SYRG SC SCH (20:02)
[2016-08-11] MEDS: Lytes/Yerba Santa 240 APPL BTL MM SCH ×5 (03:28→18:47)
[2016-08-11] MEDS: PSYLLIUM SEED 1 PACKET PACKET PO SCH ×2 (10:29→20:28)
[2016-08-11] MEDS: CHOLECALCIFEROL 1,000 UNIT CAPSULE PO SCH (10:29)
[2016-08-11] MEDS: SERTRALINE HCL 50 MG TABLET PO SCH (10:30)
[2016-08-11] MEDS: METOPROLOL SUCCINATE 50 MG TABLET.SA PO SCH (10:30)
[2016-08-11] MEDS: SPIRONOLACTONE 25 MG TABLET PO SCH (10:30)
[2016-08-11] MEDS: FINASTERIDE 5 MG TABLET PO SCH (10:30)
[2016-08-11] MEDS: LISINOPRIL 2.5 MG TABLET PO SCH (10:30)
[2016-08-11 14:03] LABS: Albumin * 2.7 gm/dl (3.4-5.0); Anion Gap 11.9 mmol/L (6.8-13.8); BUN/Creatinine Ratio 22.1 (9.0-21.6); Bilirubin, Total 0.5 mg/dL (0.0-1.1); Ca. Corrected For Albumin 9.2 mg/dL (8.4-10.2); Calcium * 8.5 mg/dL (7.9-10.9); Carbon Dioxide 27.1 mmol/L (24-32.6); Total Protein 5.9 gm/dL (6.2-8.2)
[2016-08-11] MEDS: CALCIUM CARBONATE 500 MG TAB.CHEW PO PRN (15:46)
[2016-08-11] MEDS: TAMSULOSIN HCL 0.4 MG CAP.SR.24H PO SCH (18:00)
[2016-08-11] MEDS: ROSUVASTATIN CALCIUM 10 MG TABLET PO SCH (20:28)
[2016-08-11] MEDS: ENOXAPARIN SODIUM 40 MG/0.4 ML SYRG SC SCH (20:28)
--- NOTE | 2016-08-11 23:22 | PN ---
Subjective - Date and Time Seen Date: 08/11/16 Time: 23:20 Subjective Narrative: Reports weakness and fatigue. No shortness of breath, chest pain, fever, or chills. Objective - Vitals Vitals: Last Vital Signs Temp 36.7 C 08/11/16 20:24 Pulse 84 08/11/16 22:14 Resp 18 08/11/16 20:24 BP 118/81 08/11/16 20:24 Pulse Ox 98 08/11/16 20:24 - Abnormal Lab Findings Abnormal Lab Findings: Abnormal Lab Results 08/11/16 Range/Units 13:26 Potassium 5.0 H (3.4-4.6) mmol/L BUN 34 H (6-23) mg/dL Creatinine 1.54 H (0.4-1.4) mg/dL Est GFR (Non-Af Amer) 46 L (60-130) mL/min BUN/Creatinine Ratio 22.1 H (9.0-21.6) Random Glucose 144 H D (70-110) mg/dL AST 51 H (0-48) U/L ALT 86 H (19-67) U/L Total Protein 5.9 L (6.2-8.2) gm/dL Albumin 2.7 L (3.4-5.0) gm/dl - Exam Constitutional: Present: Alert, Oriented x3, Cooperative ENT Exam: Present: hearing grossly normal Cardiovascular/Chest: Present: regular rate, rhythm Abdomen: Present: Normal bowel sounds, soft, nontender, nondistended Skin Exam: Present: normal color, warm/dry, no cyanosis Cauti Physician Documentation - Urinary Catheter Management Urethral (Cole) Urethral Indwelling: Yes Date of Insertion: 08/07/16 Time of Insertion: 03:30 Assessment/Plan Plan Narrative: 1. HFrEF: EF 25-30% with global hypokinesis. Patient fluid level stable. Has abnormal LFTs most likely secondary to passive congestion which are improving. Monitor electrolytes, daily I's/ O's and weights. On lisinopril 2.5 mg PO daily in AM. Spironolactone discontinued today due to hyperkalemia of 5.0, recheck in AM 2. A. fib with RVR: New onset. TSH WNL at 1.473. Patient converted to NSR on 08/08/16 at approximately 10-11 :00 AM. Poor candidate for anticoagulation due to risk of falls and mild memory problems. Remains rate controlled and blood pressure controlled. 3. S/P AAA: On CT abd/ pelvis [07/2016]- 4.6 cm x 4.3 cm. 4. BPH with indwelling Cole's catheter: with hydronephrosis and increased PSA 10.55. Dr. Garcia saw patient who recommended leaving Cole's catheter in. Patient currently is on Proscar 5 mg in a.m. and Flomax 0.4 mg in p.m. 5. COPD/IPF: Nebulizer treatments with DuoNeb, currently stable. 6. Social problems: Patient lives alone and does not have a very good support system. He has a [id number]['s ] who has neuropathy and can only drive about 10- 15 miles during daylight. Sister is [last year]. Patient unable to comprehend all his medical problems occurring during this admission. Trying to contact 2 of his nieces. Patient DNR.
[2016-08-12] MEDS: Lytes/Yerba Santa 240 APPL BTL MM SCH ×3 (00:26→06:30)
[2016-08-12] MEDS ORDERED: Lytes/Yerba Santa 60 APPL BTL MM ONE (06:30)
[2016-08-12 06:58] VITALS: BP 113/67
[2016-08-12 08:46] LABS: Albumin * 2.8 gm/dl (3.4-5.0); Anion Gap 11.8 mmol/L (6.8-13.8); BUN/Creatinine Ratio 20.3 (9.0-21.6); Bilirubin, Total 0.8 mg/dL (0.0-1.1); Ca. Corrected For Albumin 9.4 mg/dL (8.4-10.2); Calcium * 8.8 mg/dL (7.9-10.9); Carbon Dioxide 27.3 mmol/L (24-32.6); Potassium 5.1 mmol/L (3.4-4.6); Total Protein 6.4 gm/dL (6.2-8.2)
[2016-08-12] MEDS: FINASTERIDE 5 MG TABLET PO SCH (09:18)
[2016-08-12] MEDS: LISINOPRIL 2.5 MG TABLET PO SCH (09:18)
[2016-08-12] MEDS: PSYLLIUM SEED 1 PACKET PACKET PO SCH (09:18)
[2016-08-12] MEDS: CHOLECALCIFEROL 1,000 UNIT CAPSULE PO SCH (09:18)
[2016-08-12] MEDS: METOPROLOL SUCCINATE 50 MG TABLET.SA PO SCH (09:18)
[2016-08-12] MEDS: SERTRALINE HCL 50 MG TABLET PO SCH (09:19)
--- NOTE | 2016-08-12 09:58 | DS ---
(1) Congestive heart failure Problem: Chronic Qualifiers: Congestive heart failure type: systolic Congestive heart failure chronicity : acute Qualified Code(s): I50.21 - Acute systolic (congestive) heart failure (2) Atrial fibrillation with RVR Problem: Resolved (3) BPH (benign prostatic hyperplasia) Problem: Acute Qualifiers: Lower urinary tract symptom presence: symptoms present Description of Stay: 1. HFrEF: EF 25-30% with global hypokinesis. Patient was diuresed to a euvolumic state. He had abnormal LFTs most likely secondary to passive congestion which improved. Monitored electrolytes, daily I's/ O's and weights. He was trialed on spironolactone but this was discontinued due to hyperkalemia. 2. A. fib with RVR: New onset. TSH WNL at 1.473. Patient converted to NSR on 08/08/16 at approximately 10-11 :00 AM. Poor candidate for anticoagulation due to risk of falls and mild memory problems. Remains rate controlled and blood pressure controlled. 3. S/P AAA: On CT abd/ pelvis [07/2016]- 4.6 cm x 4.3 cm. 4. BPH with indwelling Cole's catheter: with hydronephrosis and increased PSA 10.55. Dr. Garcia saw patient who recommended leaving Cole's catheter in. Patient currently is on Proscar 5 mg in a.m. and Flomax 0.4 mg in p.m. 5. COPD/IPF: Nebulizer treatments with DuoNeb, currently stable. 6. Social problems: Patient accepted at [facility] for strengthening. Patient DNR. Procedures Performed: none Discharge Disposition: [facility] Disposition: [facility] Condition: Fair Discharge Activity: Activity as tolerated Discharge Diet: Low salt Discharge Level of Care:: [facility] Therapy: Physicial Therapy, Occupation Therapy Referrals: Cheri Villa MD [Primary Care Provider] - One Week Problem Oriented Discharge Instructions to Patient/Family: CHF Patient Instructions Additional Patient Instructions (free text): F/U apt with Dr. López - at [facility] [address]: 08/14/16 at 10 :30 am for voiding trial removal of catheter and possible scope. Cystoscopy 08/14/16, Be at [facility] at noon - sign in at ER Registration, NPO at Midnight. LAB 08/14/16 BMP Follow up with Dr. Villa 08/20 at 1:00 Prescriptions (Any new or edited meds): Finasteride [Proscar] 5 mg PO DAILY #30 tablet Lisinopril [Zestril] 2.5 mg PO DAILY #30 tablet Metoprolol Succinate [Toprol Xl] 50 mg PO DAILY #30 tablet.sa Tamsulosin HCl [Flomax] 0.4 mg PO DAILY@1800 #30 cap.sr.24h Complete Home Medications List: Complete Home Medication List: Polyethylene Glycol 3350 [Miralax] 17 gm PO DAILY 05/30/15 Simvastatin [Zocor] 20 mg PO HS 05/30/15 Cholecalciferol (Vitamin D3) [Vitamin D3] 2,000 unit PO DAILY #100 tab 06/15/15 Albuterol Sulfate/Ipratropium [Duoneb 2.5-0.5MG/3ML Soln] 3 ml IH TID 07/30/16 Sertraline HCl [Zoloft] 50 mg PO DAILY 07/30/16 Albuterol Sulfate [Albuterol Sulfate 2.5 MG/3 ML] 2.5 mg IH TID PRN 08/07/16 Finasteride [Proscar] 5 mg PO DAILY #30 tablet 08/12/16 Lisinopril [Zestril] 2.5 mg PO DAILY #30 tablet 08/12/16 Metoprolol Succinate [Toprol Xl] 50 mg PO DAILY #30 tablet.sa 08/12/16 Tamsulosin HCl [Flomax] 0.4 mg PO DAILY@1800 #30 cap.sr.24h 08/12/16 Amb Orders for Discharge: Basic Metabolic Panel Time Frame: 08/14/16, Facility: [facility], Location: Laboratory
== END 2016-08-12 10:45 | DRG 292 ==
LOC: ER 21:24 → MS 08-07 03:58 → OBSVTOIN 08-07 16:26
PROVIDERS: ADMIT Nurse Practitioner; ATTEND Internal Medicine
PROC: B246ZZZ Ultrasonography of Right and Left Heart (ICD-10-PCS; principal; 2016-08-07)
DX: I50.21 Acute systolic (congestive) heart failure (principal); N17.9 Acute kidney failure, unspecified; N13.8 Other obstructive and reflux uropathy; K59.01 Slow transit constipation; I48.91 Unspecified atrial fibrillation; N40.1 Benign prostatic hyperplasia with lower urinary tract symptoms; E78.5 Hyperlipidemia, unspecified; J84.10 Pulmonary fibrosis, unspecified; J44.9 Chronic obstructive pulmonary disease, unspecified; Z87.891 Personal history of nicotine dependence
CPT/HCPCS: 36415; 51702; 71010; 74020; 74177; 80048; 80053; 81001; 82607; 83880; 84153; 84443; 84484; 85025; 93005; 93306; 94640; 96374; 99284; 99285; J2405

== ENCOUNTER 2016-08-14 10:52 | Day surgery (SDC) | payer MEDICARE, OTHER ==
[2016-08-14] MEDS ORDERED: LEVOFLOXACIN 500 MG TABLET PO PRN (11:00)
[2016-08-14] MEDS ORDERED: LIDOCAINE HCL 10 APPL CARTRIDGE TP ONE (13:15)
--- NOTE | 2016-08-14 13:26 | OR ---
Operative Report - Dictated Report Narrative: Location: Main OR Anesthesia: Lidocaine jelly Preoperative Diagnosis: Urinary retention secondary to BPH with obstruction Postoperative Diagnosis: Same, significant high pressure change with multiple diverticula and some evidence of permanent bladder damage Procedure: #1 flexible cystoscopy with washing for cytology and culture Indications: 81-year-old male with comorbidities discovered to be in urinary retention with massive bladder distention bilateral hydroureteronephrosis and renal failure. Catheter was placed and has remained indwelling. He was started on Flomax and Proscar presents today for cystoscopy to assess for BPH with obstruction and possible voiding trial. Description: Consent obtained. Placed in the supine position. Prepped and draped. Time-out taken . Lidocaine jelly used to anesthetize urethra after catheter was removed. Scope inserted into the urethra and navigated to the bladder with ease. No obvious tumors or stones. There is some typical posterior wall hyperplasia/ edema from catheter. Mild debris. Very heavy trabeculation with multiple diverticula and high pressure change. He does have some permanent damage. Ureters difficult to see behind median lobe. Washing obtained sent for cytology and culture On retroflexion definitely has a median lobe looks to be a bit ball valving. There is an intravesical component to the prostate. Definitely looks obstructing. Scope withdrawn into prostatic urethra which was medium in length with significant obstruction proximally near bladder neck for median lobe and tightly packed lateral lobes. Distally did not look as obstructing. Overall pretty straightforward picture. EBL: 0 Specimen: Washing for cytology and culture Condition: tolerate procedure Important Findings: Obstructive findings from either BPH with obstruction or possibly prostate cancer. Heavy obstructive change with permanent bladder damage and multiple diverticula. FOLLOW UP: Catheter was left out. I did fill his bladder some. We will let him try and void on his own. I am hopeful medical therapy works and he does not need surgery. Has significant pulmonary and cardiac issues so would rather avoid TURP is possible however if he is unable to void on his own and he comes catheter dependent this will likely be the only option. I will see him back in 1-2 weeks with an ultrasound pre-and post void, BMP and urinalysis. If he is unable to void and he becomes uncomfortable should have 18 [place] coud catheter placed and remain to straight drainage.
[2016-08-14 14:15] VITALS: BP 107/64
== END 2016-08-14 10:53 | disposition home or self-care (01) ==
LOC: AMB 10:52
PROVIDERS: ATTEND Urology
PROC: 3E1K88X Irrigation of Genitourinary Tract using Irrigating Substance, Via Natural or Artificial Opening Endoscopic, Diagnostic (ICD-10-PCS; 2016-08-14)
PROC: 0TJB8ZZ Inspection of Bladder, Via Natural or Artificial Opening Endoscopic (ICD-10-PCS; principal; 2016-08-14 13:00)
DX: N40.1 Benign prostatic hyperplasia with lower urinary tract symptoms (principal); R33.8 Other retention of urine; N13.30 Unspecified hydronephrosis; J44.9 Chronic obstructive pulmonary disease, unspecified; I50.9 Heart failure, unspecified; Z87.891 Personal history of nicotine dependence